=== PATIENT | male | born 1950 | race Hispanic/Latino ===

== ENCOUNTER 2018-06-24 05:35 | Day surgery (SDC) | payer OTHER ==
[2018-06-24] MEDS ORDERED: IBUPROFEN800 MG PO (05:51)
[2018-06-24] MEDS ORDERED: VENTOLIN HFA18 GM INH (05:52)
[2018-06-24] MEDS ORDERED: CARDURA4 MG PO (05:52)
[2018-06-24] MEDS ORDERED: SENNA LAX8.6 MG PO (08:50)
[2018-06-24] MEDS ORDERED: NEURONTIN300 MG PO (08:50)
[2018-06-24] MEDS ORDERED: HYDROCODON-ACE1 EA11 PO (08:50)
--- NOTE | 2018-06-24 09:01 | NUR ---
06/24/18 0901 Marcy Rey 0848 PT ARRIVED IN PACU SLEEPY. 0900 OXYGEN REMOVED. SATS 98% ON RA. NO C/O'S PAIN.
--- NOTE | 2018-06-24 09:20 | NUR ---
PT IS BACK TO DS FROM PACU. HIS FAMILY IS AT THE BEDSIDE. CALL LIGHT WITHIN REACH. PT HAS NO C/O'S PAIN OR NAUSEA. HE IS RESTING AT THIS TIME. NO ADDTIONAL NEEDS AT THIS TIME.
--- NOTE | 2018-06-24 09:49 | NUR ---
LE 0940: PT REQUESTS TO USE THE RESTROOM. HE IS HELPED UP OOB, PT REPORTS SOME DIZZINESS, BUT IS ABLE TO AMBULATE HIMSELF WITHOUT ISSUE. VOID IS NOT MEASURED, BUT IT SOUNDED LIKE THE VOID WAS QUANTITY SUFFICIENT. HE IS GIVEN PUDDING AND CRACKERS. DC CRITERIA IS DISCUSSED WITH PT'S DAUGHTER. NO ADDITIONAL NEEDS AT THIS TIME.
--- NOTE | 2018-06-24 10:23 | NUR ---
PT IS STILL PAIN FREE IN THE RIGHT SHOULDER. HE IS EDUCATED THAT IF HE WOULD LIKE TO GO HOME HE CAN, HE HAS DC CRITERIA AT THIS TIME. PT WOULD LIKE TO STAY A LITTLE LONGER BEFORE GOING HOME. NO ADDITIONAL NEEDS AT THIS TIME.
--- NOTE | 2018-06-24 11:33 | NUR ---
PT HAS MET DC CRITERIA. HIS IV IS DC'D AND HE IS GIVEN DC INSTRUCTIONS, WHICH ARE TRANSLATED BY HIS DAUGHTER. THEY BOTH VERBALIZE UNDERSTANDING. PT IS TAKEN OUT TO THE VEHICLE VIA WC BY JAY LYNNE RN.
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
== END 2018-06-24 11:20 | disposition home or self-care (01) ==
LOC: DS 05:35
PROVIDERS: Specialist
PROC: 0LQ14ZZ Repair Right Shoulder Tendon, Percutaneous Endoscopic Approach (ICD-10-PCS; principal; 2018-06-24 06:30)
DX: M75.101 Unspecified rotator cuff tear or rupture of right shoulder, not specified as traumatic (principal); Z79.1 Long term (current) use of non-steroidal anti-inflammatories (NSAID); Z79.899 Other long term (current) drug therapy
CPT/HCPCS: 01630; 64415; 76942; C1713; J0690; J1100; J2250; J2405; J2704; J2795; J3010; J7120